=== PATIENT | male | born 1990 | race Caucasian/White ===

== ENCOUNTER 2020-07-29 02:16 | Outpatient (CLI) | payer OTHER, SELFPAY ==
--- NOTE | 2020-07-29 | DI.US_ITS ---
APPROVED REPORT EXAM: Comprehensive 2D, Doppler, and color-flow Echocardiogram Patient Location: Out-[facility] Department Manager: Lyn Waller RDCS (AE) Indications: HTN Other Information Study Quality: Good Conclusion Left Ventricle : The left ventricle is normal size. The left ventricular systolic function is normal. The left ventricular ejection fraction is within the normal range. There is normal left ventricular wall thickness. There is normal LV segmental wall motion. The left ventricular diastolic function is normal. LVEF is 58%. Right Ventricle : The right ventricle is normal size. The right ventricular systolic function is norm al. The RVSP is 23.0 mmHg. Atria : The left atrium size is normal. The right atrium size is normal. Valves: There are no hemodynamically significant valvular lesions. Great Vessels : The aortic root is normal in size. The ascending aorta is normal in size. Aortic arch is normal in caliber. IVC is normal in size and collapses >50% with inspiration. Wall motion Left Ventricle The left ventricle is normal size. The left ventricular systolic function is normal. The left ventric ular ejection fraction is within the normal range. There is normal left ventricular wall thickness. T here is normal LV segmental wall motion. The left ventricular diastolic function is normal. There is no ventricular septal defect visualized. LVEF is 58%. Right Ventricle The right ventricle is normal size. The right ventricular systolic function is normal. The RVSP is 23 .0 mmHg. Atria The left atrium size is normal. The right atrium size is normal. The interatrial septum is intact wit h no evidence for an atrial septal defect. Aortic Valve The aortic valve is normal in structure. Aortic valve is trileaflet. There is no aortic valvular sten osis. Trivial aortic regurgitation. Mitral Valve The mitral valve is normal in structure. No evidence of mitral valve stenosis. Trace mitral regurgita tion. Tricuspid Valve The tricuspid valve is normal in structure. There is no tricuspid valve stenosis. Trace tricuspid reg urgitation. Pulmonic Valve The pulmonary valve is normal in structure. There is no pulmonic valvular stenosis. Trace pulmonic re gurgitation. Great Vessels The aortic root is normal in size. The ascending aorta is normal in size. Aortic arch is normal in ca liber. IVC is normal in size and collapses >50% with inspiration. Pericardium There is no pericardial effusion. 2D Dimensions IVSD d PLAX 1.05 cm M: 0.6-1.2 LV Vol A2C d MOD 137.1 mL LVPW d PLAX 1.02 cm M: 0.6 - 1.2 LV Vol A4C d MOD 128.8 mL LVID d PLAX 5.30 cm M: 4.2 - 5.8 LA vol/ BSA A2C s A-L 32.0 mL/m2 LVDs 3.55 cm M: 2.5 - 4.0 LA vol/ BSA A4C s A-L 27.4 mL/m2 Ao Root d 3.53 cm M: 3.1 - 3.7 LA Vol/ BSA Biplane s A-L 29.8 mL/m2 RA Area A4C 19.46 cm2 LA Area A4C s MOD 20.67 cm2 RA Vol/ BSA A4C s A-L 26.2 mL/m2 LA Area A2C s MOD 22.46 cm2 Ao Asc Diam d 3.09 cm M: 2.6 - 3.4 LV EF A4C MOD 58.5 % LV EF Teichholz 60.1 % LV EF A2C MOD 58.7 % LVEF (Machuca's) 58.96 % M: 52 - 72 LV EF Biplane MOD 59.0 % LV Volume 98.18 mL M: 62 - 150 SV 79.56 mL LV Volume Index 44.83 mL/m2 M: 34 - 74 SV Index 36.21 mL/m2 LV Vol Biplane MOD 134.9 mL FS 32.25 % M-Mode TAPSE 2.39 cm (M/F) >1.7 LV Diastology MV E' medial 0.125 (>0.07 m/s) E/A Ratio 1.2 LV E/e MED 4.85 (<14) MV E Vmax 0.61 (0.4-1.3 m/s) MV E' lateral 0.179 (>0.1 m/s) MV A Vmax 0.50 (0.4-1.3 m/s) LV E/e LAT 3.40 (<14) MV E/A Ratio 1.18 MV E/E' medial 4.87 MV E/E' lateral 3.42 Aortic Valve LVOT Area 3.30 cm2 AoV Area Vmax 3.06 cm2 LVOT Vmax 0.89 m/s AoV Area/ BSA (Vmax) 1.39 cm2/m2 LVOT Mean Juanito. 0.59 m/s LYNETTE Mean Juanito. 2.76 cm2 LVOT Peak Grad 3.1 mmHg LYNETTE Mean Juanito. Index 1.26 cm2/m2 LVOT Mean Grad 1.6 mmHg LVOT VTI 0.179 m LVOT Diam s 2.00 cm AoV Vmax 0.96 m/s Velocity Ratio 0.92 AoV Mean Juanito. 0.70 m/s AoV Peak Grad 3.7 mmHg LVOT SV 59.13 mL AoV Mean Grad 2.1 mmHg AoV VTI 0.166 m AoV Area VTI 3.56 cm2 AoV Area/ BSA (VTI) 1.62 cm/m2 Mitral Valve MV DT 228 (160-240 msec) MV PHT 66 msec MV Area PHT 3.33 cm2 Pulmonary Valve PV Vmax 0.92 (0.5-1.5 m/s) RVOT Peak Gr. 2.12 mmHg PV Peak Grad 3.4 mmHg RVOT Mean Gr. 1.00 mmHg PV Mean Grad 1.7 mmHg RVOT VTI 0.137 m PV VTI 0.185 m RVOT Vmax 0.73 m/s Tricuspid Valve TR Peak Grad 20.0 mmHg TR Vmax 2.24 m/s RA Pressure 3.00 mmHg RVSP (TR) 23.0 mmHg
--- NOTE | 2020-07-29 | DI.US_ITS ---
Exam(s) US RENAL EXAM: US RENAL CLINICAL HISTORY: [id number],HYPERTENSION,I10 TECHNIQUE: Ultrasound performed using standard protocol. COMPARISON: No exams were available for comparison FINDINGS: Renal ultrasound was performed according to the usual protocol. Kidneys are normal in size and shape and there is no evidence of a renal mass, hydronephrosis, or nephrolithiasis. Urinary bladder is un remarkable in appearance and ureteral jets were noted bilaterally. Pre and post void urinary bladder volume, 714 cc and 17 cc respectively. Prostatic volume estimated at 28 cc IMPRESSION: Negative renal ultrasound. DATA REPOSITORY:
== END 2020-07-29 02:36 ==
PROVIDERS: PCP Nurse Practitioner Family; Visit Provider Nurse Practitioner Family
DX: I10 Essential (primary) hypertension (principal)
CPT/HCPCS: 76770; 93306